=== PATIENT | female | born 1950 | race Caucasian/White ===

== ENCOUNTER → 2019-05-08 08:32 | Outpatient (CLI) | payer MEDICARE, SELFPAY ==
--- NOTE | 2019-05-08 | DI.MRI.S_ITS ---
PROCEDURE: MR HEAD/BRAIN WO/W CON INDICATIONS: RIGHT FACIAL DROOP TECHNIQUE: Noncontrast axial T1 spin echo, axial T2 fast spin echo, sagittal and axial FLAIR, coronal T2 fast spin echo, axial gradient echo, axial diffusion and ADC through the brain. After the administration of contrast, axial and coronal T1 spin echo with fat saturation through the brain. COMPARISON: None. FINDINGS: Image quality: Excellent. CSF spaces: Basal cisterns are patent. No extra-axial fluid collections. Ventricles are normal in size and shape. Brain: No midline shift. No intracranial bleeds or masses. No abnormal intracranial enhancement. There is cerebral volume loss for age. There is periventricular white matter chronic small vessel ischemic change. The brainstem appears normal. Diffusion-weighted images demonstrate no acute ischemic insults. No chronic ischemic insults. Normal intravascular flow voids are present. Skull and face: Calvarial marrow is normal in signal. Orbits appear normal. Sinuses: Sinuses and mastoids appear clear. IMPRESSION: No evidence of acute ischemia. No abnormal intracranial enhancement. Dictated by: Homero Hurley M.D. on 05/08/2019 at 10:39 Approved by: Homero Hurley M.D. on 05/08/2019 at 10:43
--- NOTE | 2019-05-08 | DI.US.S_ITS ---
PROCEDURE: US CAROTID DOPPLER BI INDICATIONS: RIGHT FACIAL DROOP TECHNIQUE: Color and pulse Doppler interrogation was performed of both carotid systems, with image documentation and velocity measurements. COMPARISON: None. FINDINGS: Stenosis calculations are based on SRU (Society of Radiologists in Ultrasound) criteria. Right side: Brachial blood pressure: 114/75 mm Hg. Common carotid artery peak systolic velocity: 100 cm/sec. Internal carotid artery peak systolic velocity: 104 cm/sec. Internal carotid artery end diastolic velocity: 46 cm/sec. External carotid artery peak systolic velocity: 99 cm/sec. ICA/CCA peak systolic ratio: 1.0. Bess scale imaging description: Minimal scattered plaque. Percent internal carotid artery stenosis: Less than 50%. Vertebral artery: Flow direction is antegrade. Left side: Brachial blood pressure: 118/75 mm Hg. Common carotid artery peak systolic velocity: 98 cm/sec. Internal carotid artery peak systolic velocity: 174 cm/sec. Internal carotid artery end diastolic velocity: 69 cm/sec. External carotid artery peak systolic velocity: 126 cm/sec. ICA/CCA peak systolic ratio: 1.8. Bess scale imaging description: Mild scattered plaque. Percent internal carotid artery stenosis: The 50-69% stenosis. Vertebral artery: Flow direction is antegrade. IMPRESSION: 1. 50-69% left internal carotid artery stenosis. 2. Less than 50% right internal carotid artery stenosis. Dictated by: Silviano Menard [facility] Interpreted: Mauro Aguirre MD on 05/08/2019 at 11:05 Approved by: Mauro Aguirre M.D. on 05/08/2019 at 12:14
== END ==
PROVIDERS: PCP Internal Medicine; Referring Provider Acupuncturist; Visit Provider Internal Medicine
DX: R29.810 Facial weakness (principal); I65.23 Occlusion and stenosis of bilateral carotid arteries
CPT/HCPCS: 70553; 93880

== ENCOUNTER 2019-08-08 15:19 | Emergency (ER) | payer MEDICARE, SELFPAY ==
[2019-08-08 15:30] VITALS: BP 124/64; PULSE 81; RESP 14; TEMP 37.2; O2SAT 100; BMI 23.4
--- NOTE | 2019-08-08 15:31 | DI.RAD.S_ITS ---
PROCEDURE: XR CHEST 1V INDICATIONS: chest pain TECHNIQUE: One view of the chest was acquired. COMPARISON: None. FINDINGS: Surgical changes and devices: None. Lungs and pleura: Lungs are clear. No pleural effusions or pneumothorax. Mediastinum: Mediastinal contours appear normal. Heart size is normal. Bones and chest wall: No suspicious bony lesions. Overlying soft tissues appear unremarkable. IMPRESSION: Negative chest. No acute cardiopulmonary process is evident. Dictated by: Mg Evangelista M.D. on 08/08/2019 at 15:08 Approved by: Mg Evangelista M.D. on 08/08/2019 at 15:09
[2019-08-08 15:47] LABS: Add Manual Diff / Slide Review NO; Basophils Absolute Auto 100 /uL (0-100); Basophils Percent Auto 1.3 % (0-2); Eosinophils Absolute Auto 100 /uL (0-450); Eosinophils Percent Auto 0.7 % (2-4); Hematocrit 39.4 % (36-46); Hemoglobin 13.9 g/dL (12.0-16.0); Lymphocytes Absolute Auto 2800 /uL (1100-4500); Lymphocytes Percent Auto 34.3 % (25-40); Mean Corpuscular HGB Conc 35.3 % (30-36); Mean Corpuscular Hemoglobin 32.2 PG (26-34); Mean Corpuscular Volume 91.3 fL (80-100); Monocytes Absolute Auto 600 /uL (0-900); Monocytes Percent Auto 7.3 % (3-14); Neutrophils Absolute Auto 4600 /uL (1500-7000); Neutrophils Percent Auto 56.4 % (50-75); Platelet Count 301 X10^3/uL (150-400); Red Blood Cell Count 4.32 X10^6/uL (4.0-5.2); Red Cell Distribution Width 13.3 % (11.6-14.8); White Blood Cell Count 8.2 X10^3/uL (4.5-11.0)
[2019-08-08 15:54] LABS: INR 0.9 (0.9-1.3); Prothrombin Time 9.8 SECONDS (10.1-12.7)
--- NOTE | 2019-08-08 15:56 | ED.CHESTPAIN ---
HPI - Chest Pain General Chief Complaint: Chest Pain Stated Complaint: CHEST PAIN Time Seen by Provider: 08/08/19 15:33 Source: patient Mode of arrival: Ambulatory Limitations: no limitations History of Present Illness HPI narrative: Patient is a 69-year-old female who presents with chest pains off and on for the last 10 years. She says it's been ongoing persistently today it comes and goes and lasts for about 10-15 seconds. She had with frequent episodes today she only got about a minute between each 1. She has had a couple I've talked to her no PVCs noted on the monitor. She denies any dizziness lightheadedness. Pain remains localized in left side of her chest. She said that she was seen by middle school sports coach at some point for the davis told to take a statin. She may have had TIA this past year but not sure. She did take aspirin 81 mg prior to arrival. She denies any shortness of breath no radiation of pain. She denies any provocation or palliation of chest discomfort. MD complaint: chest pain Duration: intermittent and now resolved Onset: during rest Pain location: left chest Severity: mild Quality: sharp Relieving factors: nothing Exacerbating factors: nothing Related Data Allergies Allergy/AdvReac Type Severity Reaction Status Date / Time tramadol [TRAMADOL] Allergy Severe VERTIGO & Verified 08/08/19 15:33 PASSES OUT misoprostol [From CYTOTEC] Allergy Intermediate RASH Verified 08/08/19 15:33 Opioids - Morphine Analogues AdvReac Severe NAUSEA/V Verified 08/08/19 15:33 [OPIOIDS - MORPHINE OMITING ANALOGUES] Review of Systems Review of Systems Narrative: GENERAL: Denies chills, fatigue, malaise, fever, sweats, travel HEENT: Denies sinus pain, ear pain, sore throat, difficulty swallowing, neck pain RESPIRATORY: Denies dyspnea, cough, wheezing, hemoptysis, sputum. CARDIOVASCULAR: See HPI GASTROINTESTINAL: Denies nausea, vomiting, abdominal pain, diarrhea, constipation, melena. : Denies dysuria, frequency, incontinence, hematuria, urinary retention, flank pain. MUSCULOSKELETAL: Denies weakness, joint pain, or bony pain SKIN: No rash, no erythema, no pruritus NEUROLOGIC: Denies weakness, dizziness, headache, numbness, change in speech, confusion PSYCHIATRIC: No concerning psychosocial issues. 12 point review of systems is negative except for those stated above and HPI Patient History Medical History Hyperlipidemia (Acute) TIA (transient ischemic attack) (Acute) Surgical History History of tonsillectomy Status post dilation and curettage (01/28/16) Status post laparoscopy Status post tubal ligation Social History Smoking Status: Unknown if ever smoked Smoking Status: Unknown if ever smoked alcohol intake frequency: holidays/special occasions only Substance Use Type: does not use Exam Initial Vital Signs Initial Vital Signs: Vital Signs Temperature 98.9 F 08/08/19 15:30 Pulse Rate 81 08/08/19 15:30 Respiratory Rate 14 08/08/19 15:30 Blood Pressure 124/64 08/08/19 15:30 Pulse Oximetry 100 08/08/19 15:30 GENERAL: Well-appearing, well-nourished and in no acute distress. HEENT: Head atraumatic,EOMI, pupils reactive CARDIOVASCULAR: Regular rate and rhythm without murmurs, rubs or gallops. RESPIRATORY: Breath sounds equal bilaterally, no wheezes rales or rhonchi. ABDOMEN: Soft, nontender. Normoactive bowel sounds all 4 quadrants. No guarding or rebound. EXTREMITIES: Normal range of motion, no clubbing or edema. Neurovascularly intact NEUROLOGICAL: Alert and oriented x4.Normal gait and speech. SKIN: Warm, dry, no laceration, no petechiae, no rashes or lesions. Course Orders Ordered: ED Orders 08/08/19 15:31 XR chest 1V Stat EKG-12 Lead Stat 08/08/19 15:38 Complete Blood Count AUTO DIFF Stat Comprehensive Metabolic Panel Stat Lipase Stat Partial Thromboplastin Time Stat Prothrombin Time INR Stat Troponin & CK Cardiac Panel Stat Vital Signs Vital signs: Vital Signs - 8 hr 08/08/19 15:30 08/08/19 16:28 08/08/19 17:39 Temperature 98.9 F Pulse Rate 81 82 81 Respiratory Rate 14 13 14 Blood Pressure 124/64 Blood Pressure [Right Arm] 98/68 100/66 Pulse Oximetry 100 98 97 MDM - Chest Pain Lab Data Attestation: I reviewed the patient's lab results. Result diagrams: 08/08/19 15:38 08/08/19 15:38 Labs: Lab Results 08/08/19 08/08/19 08/08/19 Range/Units 15:38 15:38 15:38 WBC 8.2 (4.5-11.0) X10^3/uL RBC 4.32 (4.0-5.2) X10^6/uL Hgb 13.9 (12.0-16.0) g/dL Hct 39.4 (36-46) % MCV 91.3 (80-100) fL MCH 32.2 (26-34) PG MCHC 35.3 (30-36) % RDW 13.3 (11.6-14.8) % Plt Count 301 (150-400) X10^3/uL Neut % (Auto) 56.4 (50-75) % Lymph % (Auto) 34.3 (25-40) % [place] % (Auto) 7.3 (3-14) % Eos % (Auto) 0.7 L (2-4) % Baso % (Auto) 1.3 (0-2) % Neut # (Auto) 4600 (9741-9375) /uL Lymph # (Auto) 2800 (1471-2585) /uL [place] # (Auto) 600 (0-900) /uL Eos # (Auto) 100 (0-450) /uL Baso # (Auto) 100 (0-100) /uL PT 9.8 L (10.1-12.7) SECONDS INR 0.9 (0.9-1.3) APTT 33 (26.4-36.2) SECONDS Sodium 140 (137-145) mmol/L Potassium 3.5 (3.4-5.1) mmol/L Chloride 105 (98-107) mmol/L Carbon Dioxide 27 (22-32) mmol/L BUN 21 H (7-17) mg/dL Creatinine 0.70 (0.52-1.04) mg/dL Estimated GFR > 60.0 (>60) mL/min BUN/Creatinine Ratio 30.0 H (6-22) Glucose 107 (80-110) mg/dL Calcium 9.5 (8.4-10.2) mg/dL Total Bilirubin 0.7 (0.2-1.3) mg/dL AST 33 (14-36) IU/L ALT 28 (<35) IU/L Alkaline Phosphatase 60 (38-126) U/L Total Creatine Kinase 60 (30-135) U/L CK-MB (CK-2) TNP CK-MB (CK-2) Rel Index TNP Troponin I < 0.012 (0.01-0.034) ng/mL Total Protein 7.2 (6.3-8.2) g/dL Albumin 4.5 (3.5-5.0) g/dL Globulin 2.7 (1.7-4.1) g/dL Albumin/Globulin Ratio 1.7 (1.0-2.8) Lipase 96 (23-300) U/L Imaging Data Chest x-ray: Radiologist's impression: PROCEDURE: XR CHEST 1V INDICATIONS: chest pain TECHNIQUE: One view of the chest was acquired. COMPARISON: None. FINDINGS: Surgical changes and devices: None. Lungs and pleura: Lungs are clear. No pleural effusions or pneumothorax. Mediastinum: Mediastinal contours appear normal. Heart size is normal. Bones and chest wall: No suspicious bony lesions. Overlying soft tissues appear unremarkable. IMPRESSION: Negative chest. No acute cardiopulmonary process is evident. Dictated by: Mg Evangelista M.D. on 08/08/2019 at 15:08 ECG Data Attestation: I personally reviewed and interpreted this ECG as follows: Prior ECG tracings: not available for review Interpretation: Normal sinus rhythm rate 81, no ST elevation depression or T-wave inversion MDM Narrative Medical decision making narrative: Patient was offered Toradol Protonix and other things for pain. At this time she declined all things for pain. Patient did not have any PVCs noted on the monitor she has had intermittent chest pain throughout the day troponin is negative. She has no signs of shortness of breath. I recommend outpatient follow-up and further workup as needed. Discharge Plan Departure Patient Disposition: Home Clinical Impression: Atypical chest pain Discharge Date/Time: 08/08/19 17:43 Instructions: DI for Atypical Chest Pain Activity Restrictions/Additional Instructions: *You have been diagnosed with atypical chest pain *What to do: You will likely require further testing with your heart doctor or your primary care doctor. Please discuss with them stress test and/or echocardiogram along with possibly a Holter monitor. *Continue to take medications as directed Aspirin 81 mg daily to help prevent heart attack and stroke *Follow up with your primary care provider in 2-3 days *Return to ER if you should have increasing chest pain heart palpitations shortness of breath or any new, worsening or concerning symptoms Referrals: Cesario Oconnell MD [Primary Care Provider] -
[2019-08-08 15:57] LABS: PTT Partial Thromboplastin Tim 33 SECONDS (26.4-36.2)
[2019-08-08 15:59] LABS: Alanine Aminotransferase 28 IU/L (<35); Albumin 4.5 g/dL (3.5-5.0); Albumin Globulin Ratio 1.7 (1.0-2.8); Alkaline Phosphatase 60 U/L (38-126); Aspartate Aminotransferase 33 IU/L (14-36); Bilirubin Total 0.7 mg/dL (0.2-1.3); Blood Urea Nitrogen 21 mg/dL (7-17); Calcium 9.5 mg/dL (8.4-10.2); Carbon Dioxide 27 mmol/L (22-32); Chloride 105 mmol/L (98-107); Creatine Kinase 60 U/L (30-135); Estimated Glomerular Filt Rate > 60.0 mL/min (>60); Globulin 2.7 g/dL (1.7-4.1); Glucose 107 mg/dL (80-110); HEMOLYSIS 26 (0-50); Lipase 96 U/L (23-300); Potassium 3.5 mmol/L (3.4-5.1); Sodium 140 mmol/L (137-145); Total Protein 7.2 g/dL (6.3-8.2)
[2019-08-08 16:11] LABS: Troponin I < 0.012 ng/mL (0.01-0.034)
[2019-08-08 16:28] VITALS: BP 98/68; PULSE 82; RESP 13; O2SAT 98
[2019-08-08 17:39] VITALS: BP 100/66; PULSE 81; RESP 14; O2SAT 97
== END 2019-08-08 17:43 | disposition home or self-care (01) ==
PROVIDERS: Emergency Provider Emergency Medicine; PCP Internal Medicine
DX: R07.89 Other chest pain (principal); E78.5 Hyperlipidemia, unspecified
CPT/HCPCS: 36415; 71045; 80053; 82550; 83690; 84484; 85025; 85610; 85730; 93005; 93010; 99284; 99285

== ENCOUNTER → 2020-04-06 10:31 | Outpatient (CLI) | payer MEDICARE, SELFPAY ==
--- NOTE | 2020-04-06 10:38 | DI.CT.S_ITS ---
PROCEDURE: CT ABDOMEN PELVIS WO CON INDICATIONS: surgical planning TECHNIQUE: Noncontrast 5 mm thick sections acquired from the diaphragms to the symphysis. 5 mm coronal and sagittal reformats were then performed. For radiation dose reduction, the following was used: automated exposure control, adjustment of mA and/or kV according to patient size. COMPARISON: None. FINDINGS: Image quality: Excellent. ABDOMEN: Lung bases: Lung bases are clear. Heart size is normal. Solid organs: Liver is enlarged with steatosis. Gallbladder is contracted but grossly unremarkable.. Pancreas is normal in contours. Spleen is normal in size. No adrenal nodules. Kidneys are normal in size, without hydronephrosis or nephrolithiasis. Peritoneum and bowel: Unenhanced bowel loops demonstrate normal wall thickness and caliber. No free fluid or air. Colonic diverticula are present without associated inflammatory change. Nodes and vessels: No retroperitoneal or mesenteric adenopathy by size criteria. Aorta and inferior vena cava are normal in caliber. Miscellaneous: No ventral hernias. Mild hiatal hernia. PELVIS: Genitourinary: Bladder wall thickness is normal. Foci of low attenuation as well soft tissue prominence are noted within the lower uterine segment. Miscellaneous: Fat containing inguinal hernias are noted.. Bones: No suspicious bony lesions. No vertebral body compression fractures. IMPRESSION: 1. Bilateral fat containing inguinal hernias. 2. Low-attenuation foci within the lower uterine segment possibly small cysts. As indicated, ultrasound may be obtained. Dictated by: Marija Atkinson M.D. on 04/06/2020 at 13:57 Approved by: Marija Atkinson M.D. on 04/06/2020 at 14:21
== END ==
PROVIDERS: PCP Physician Assistant; Referring Provider Surgery; Visit Provider Surgery
DX: K40.20 Bilateral inguinal hernia, without obstruction or gangrene, not specified as recurrent (principal); R10.12 Left upper quadrant pain; R09.89 Other specified symptoms and signs involving the circulatory and respiratory systems; K76.0 Fatty (change of) liver, not elsewhere classified; K44.9 Diaphragmatic hernia without obstruction or gangrene; K57.90 Diverticulosis of intestine, part unspecified, without perforation or abscess without bleeding
CPT/HCPCS: 74176

== ENCOUNTER → 2020-07-12 08:47 | Outpatient (CLI) | payer MEDICARE, SELFPAY ==
[2020-07-12 11:35] LABS: COVID19 -Nasal RAPID Negative (Negative)
== END ==
PROVIDERS: PCP Physician Assistant; Visit Provider Physician Assistant
DX: Z11.59 Encounter for screening for other viral diseases (principal)
CPT/HCPCS: 87635

== ENCOUNTER 2020-07-14 07:52 | Observation (INO) | payer MEDICARE, SELFPAY ==
[2020-07-09 13:41] VITALS: BMI 23.6
[2020-07-14] VITALS (16 sets, daily range): BP systolic 83–123; BP diastolic 47–70; PULSE 77–106; RESP 10–18; TEMP 35.7–37.1; O2SAT 88–99; BMI 23.9
--- NOTE | 2020-07-14 | PATH_ITS ---
[facility] Accession Number: [id number] . 01 Material submitted: . PART A: duodenum - DUODENUM PART B: stomach - GASTRIC ANTRUM PART C: stomach - STOMACH POLYP PART D: esophagus - ESOPHAGUS . 02 Diagnosis: A. Duodenum, Biopsy: Duodenal mucosa with no diagnostic abnormality. Negative for active inflammation, features of sprue, dysplasia, or malignancy. . B. Stomach Antrum, Biopsy: Gastric antral mucosa with minimal active inflammation. Negative for Helicobacter organisms by immunohistochemistry. Negative for intestinal metaplasia. Negative for dysplasia or malignancy. . C. Stomach Polyp, Biopsy: Fundic gland polyp. No evidence of Helicobacter organisms on H/E stain. Negative for intestinal metaplasia. Negative for dysplasia and malignancy. . D. Esophagus, Biopsy: Squamous epithelium with no diagnostic abnormality. Intraepithelial eosinophils are not increased. Negative for dysplasia and malignancy. [facility] 07/19/2020 1526 Local . 02 Electronically signed: . Sukhwinder Juarez MD, PhD, Pathologist NPI- [id number] . 01 Gross description: . Part A: DUODENUM: Received in formalin are 2 fragment(s) of riley, soft tissue measuring 0.3 x 0.3 x 0.1 cm to 0.2 x 0.2 x 0.1 cm submitted entirely in 1 cassette(s) Part B: GASTRIC ANTRUM: Received in formalin is 1 fragment(s) of riley, soft tissue measuring 0.7 x 0.2 x 0.1 cm submitted entirely in 1 cassette(s) Part C: STOMACH POLYP: Received in formalin are 2 fragment(s) of riley, soft tissue measuring 0.3 x 0.3 x 0.3 cm to 0.3 x 0.3 x 0.3 cm submitted entirely in 1 cassette(s) Part D: ESOPHAGUS: Received in formalin are 2 fragment(s) of riley, soft tissue measuring 0.3 x 0.2 x 0.1 cm to 0.2 x 0.2 x 0.2 cm submitted entirely in 1 cassette(s) /[facility] 07/15/2020 0712 Local . 02 Microscopic: . B. An immunohistochemical stain was performed to evaluate for Helicobacter organisms and is negative. The control stain showed appropriate reactivity. . * This test was developed and its performance characteristics determined by [facility]. It has not been cleared or approved by the U.S. Food and Drug Administration. The FDA has determined that such clearance or approval is not necessary. This test is used for clinical purposes. It should not be regarded as investigational or for research. . 02 Pathologist provided ICD-10: K29.70, K31.7, R10.13 . 02 CPT . 113533, 987199, 530602, 333572 Performed at: 01 [facility] [address] [facility], [place], [place] [id number] MD Toñito Day MD Phone: [phone] Performed at: [facility] [address] [place], [place] [id number] MD Heather Ugalde MD Phone: [phone]
--- NOTE | 2020-07-14 08:20 | P.HP_ITS ---
History of Present Illness History of Present Illness Date Patient Seen: 07/14/20 Time Patient Seen: 08:21 Chief complaint: SDC Narrative: This patient is here for bilateral inguinal hernia repair with mesh and EGD. To review, this is a 70-year-old woman with complex medical history including steroid dependent Milwaukee's disease, borderline diabetes, chronic fatigue, hypothyroid, TIA, small vessel disease, hiatal hernia, GERD, bilateral inguinal hernias. She came to see me a few months ago because the inguinal hernias were bothering her more, and the right one especially causing her pain and discomfort. She has been concerned that they are at risk for strangulation. She has had some chronic constipation, and what sounds like what might be a rectoceole. She says she has to push up on her perineal area to have a BM. She says this has improved with improving her diet recently. She denies ongoing problems with this at this time. She has described a complexity of upper GI symptoms including LUQ discomfort that she relieves by pushing down on her left rectus muscle near the costal margin. She denies having had an upper endoscopy or colonoscopy. She says she has not had a colonoscopy because she does not want to have one. She was complaining of discomfort in her chest and throat at times. She occasionally has a globus sensation with eating (about once per week). She denies heartburn, waterbrash, or respiratory complaints. She had a CT scan, which shows bilateral inguinal hernias, right greater than left, and a very minor hiatal hernia. Since her last visit, she went to see her primary care provider to discuss the risks and benefits of EGD and laparoscopic inguinal hernia repair surgery. Her primary care provider recommended that she increase her dose of hydrocortisone on the day of surgery to double her morning dose. She otherwise release the patient for general anesthesia and laparoscopic surgery as well as an EGD. The patient denies any new symptoms since her last visit, but has noticed at the right inguinal hernias bothering her more, and the left 1 is causing her increasingly more discomfort. Interval events: per the patient no changes since her last visit 06/08/2020. ROS: Thirteen system review is otherwise negative other than as mentioned below and in HPI. PE: GENERAL: Well groomed and cooperative. Appears stated age. Answers questions promptly and appropriately. Vital signs noted. HENT: Normocephalic, atraumatic. Hearing intact. EYES: Conjunctiva pink, sclera white, no periorbital swelling. CARDIOVASCULAR: Regular rate. No pedal edema. RESPIRATORY: Non-tachypneic, breathing comfortably on room air. GASTROINTESTINAL: Abdomen soft and non-distended GENITALURINARY: No flank tenderness. Bilateral inguinal tenderness; inguinal floor laxity, no obvious hernia bulge or defect palpable MUSCULOSKELETAL: Equal tone and mass bilaterally. SKIN: Warm, dry, soft, appropriate color for ethnicity. No other lesions, rashes, or wounds. NEURO: Alert and Oriented X 3. No gross sensory deficits, or cognitive issues. PSYCH: Appropriate affect and mood. Patient History Medical History Shan's disease Adrenal insufficiency Anxiety Borderline diabetes Chest pain Chronic cough Chronic fatigue Depression Difficulty swallowing Edema GERD (gastroesophageal reflux disease) Hx of migraine headaches Hyperglycemia Hyperlipidemia Hypothyroid Small vessel disease TIA (transient ischemic attack) Urinary incontinence Surgical History History of tonsillectomy Status post dilation and curettage (01/28/16) Status post laparoscopy Status post tubal ligation Family & Social History Family History Father Heart disease Mother Gallstones Grandfather Gallstones Social History: household members spouse Tobacco & Substance use: Smoking Status Unknown if ever smoked alcohol intake never alcohol intake frequency holiday/special occasion Substance Use Type does not use Meds Home Medications and Allergies Home Medications Medication Instructions Recorded Confirmed Type estradiol 0.075 mg/24 hr 1 patch TRANSDERMAL .weekly each 03/16/20 07/14/20 History semiweekly transdermal patch multivitamin 1 cap PO DAILY 03/16/20 07/14/20 History omega-3 fatty acids 1,000 mg 1,000 mg PO DAILY 03/16/20 07/14/20 History capsule progesterone micronized 100 mg 100 mg PO QAM 03/16/20 07/12/20 History capsule red yeast rice 600 mg capsule 600 mg PO DAILY 03/16/20 07/14/20 History testosterone 50 mg/5 gram (1 %) 1 packet TRANSDERMAL DAILY 03/16/20 07/14/20 History transdermal gel thyroid (pork) 30 mg tablet 30 mg PO BID tab 03/16/20 07/14/20 History hydrocortisone 10 mg PO SEEINSTR 07/14/20 07/14/20 History Allergies Allergy/AdvReac Type Severity Reaction Status Date / Time Opioids - Morphine Analogues Allergy Severe Anaphylaxis, Verified 07/14/20 08:22 [OPIOIDS - MORPHINE Rash, ANALOGUES] Itching throat, syncope, vomiting tramadol [TRAMADOL] Allergy Severe VERTIGO & Verified 07/14/20 08:22 PASSES OUT misoprostol [From CYTOTEC] Allergy Intermediate RASH Verified 07/14/20 08:22 hydrocodone Allergy Verified 07/14/20 08:22 meperidine [From Demerol] Allergy Verified 07/14/20 08:22 oxycodone [From Percocet] Allergy Verified 07/14/20 08:22 Assessment & Plan Assessment and plan (1) Chronic constipation: Status: Acute (2) Bilateral inguinal hernia: Status: Acute (3) LUQ abdominal pain: Status: Acute (4) Milwaukee's disease: Status: Acute (5) TIA (transient ischemic attack): Status: Acute (6) Hyperlipidemia: Status: Acute (7) Borderline diabetes: Status: Acute (8) Chronic fatigue: Status: Acute (9) Small vessel disease: Status: Acute (10) Globus sensation: Status: Acute Assessment & Plan narrative: Risks and benefits of laparoscopic possible open bilateral inguinal hernia repair with mesh were discussed with the patient. Risks and benefits of EGD were discussed. Risks of bleeding, perforation, damage to nearby structures, need for additional procedures need for prolonged hospital stay, scarring, postoperative pain, Addisonian crisis, bowel obstru ction were discussed. The patient desires to proceed with EGD and inguinal hernia repair procedures. COVID-19 COVID-19 status: Negative Result date/Date tested (Pos, Neg/Pending): 07/12/20 Time Spent With Patient Time with patient: 15-24 minutes
[2020-07-14] MEDS: LACTATED RINGERS 1,000 ML 42 ML IV ×2 (08:22→10:44)
[2020-07-14] MEDS: CEFAZOLIN 2 GM/100 ML FROZ.PIGGY IV (08:45)
[2020-07-14] MEDS: BUPIVACAINE 0.25% W/ EPI (PF) 10 ML VIAL 20 ML INJ (09:16)
--- NOTE | 2020-07-14 09:33 | SUR.OPER ---
Supine on padded OR bed, head on pillow, ARMS TUCKED BILATERALLY legs uncrossed, safety belt at thigh, tape over blanket over lower legs.
[2020-07-14] MEDS: BUPIVACAINE LIPOSOME 266 MG/20 ML VIAL INJ (09:57)
[2020-07-14] MEDS: ACETAMINOPHEN IV 1,000 MG/100 ML VIAL 400 MG IV (10:00)
--- NOTE | 2020-07-14 11:13 | PM.OP.1 ---
Operative Date/Time/Diagnoses Date of procedure: 07/14/20 Time of procedure: 11:13 Pre-op diagnosis: Bilateral inguinal hernias Post-op diagnosis: other (Bilateral inguinal hernias right > left; left upper quadrant adhesions) Procedure & Clinicians Procedure: Laparoscopic repair of bilateral inguinal hernias with mesh Laparoscopic lysis of adhesions Same procedure as scheduled: Yes Surgeon: Angela Barajas Operative Notes Findings: Deep indirect right inguinal hernia; small indirect left inguinal hernia; dense left upper quadrant adhesions to the anterior abdominal wall Specimen(s): none sent Prosthetic devices, grafts, tissues, transplants, or devices: BARD 3-D max, medium sized lightweight mesh Estimated Blood Loss (mL): 5 Procedure in detail: The patient was brought into the operating room and placed supine on the OR table. Sequential compression devices were placed on both legs and turned on. Appropriate perioperative antibiotics were given prior to the start of surgery. General anesthesia was induced the patient was intubated. A Rodriguez catheter was placed sterilely in the bladder. The abdomen was prepped and draped in sterile fashion. Surgical time-out was conducted. Local anesthetic was injected under the skin just superior to the umbilicus and a 5 mm vertical incision was made at this site. The umbilical stalk was grasped with a Temo and elevated. A Veress needle was passed through the fascia into proper position. The position was tested with a saline drop test which was appropriate for intra-abdominal Veress needle placement. The abdomen was then insufflated in the usual fashion. Once insufflated to 15 mm Hg the Veress needle was removed and a 5 mm optical trocar was placed under direct vision using a 5 mm 30 degree scope. Once the camera was inside the abdomen I took a look around. There was no injury from port placement. Two additional ports were placed in a similar fashion in the right and left mid clavicular line at the level of the umbilicus, one handbreadth lateral to the umbilicus. The umbilical port was upsized to a 10mm port. Attention was turned to the pelvis, and both inguinal regions were evaluated. On the left side there was an indentation in the abdominal wall consistent with a small indirect hernia defect. On the right side there was a deep indirect hernia defect with incarcerated fat. Beginning on the [right] side local anesthetic was in the infiltrated into the abdominal wall using 0.25% Marcaine with epi, in the region of the expected peritoneal incision. Metzenbaum scissors attached to cautery were then used to incise the peritoneum transversely from the midline laterally to the ASIS, 10 cm superior to the inguinal hernia defect. The peritoneal flap was developed down to the inguinal canal. There was a deep hernia sac, and tedious dissection was required in order to free it from the surface of the femoral vein. Once the flap had been fully developed associated structures were completely exposed, and the hernia defect had been fully evaluated, I then exposed the pubic tubercle and push down the bladder so that there was space for good mesh placement. A need 3DMax macro porous mesh was then brought into the field. I placed it through the 10 mm port and positioned it within the surgical defect covering the direct, indirect, and femoral space with 5 cm overlap in each direction. I then secured the mesh to the pubic tubercle in 2 locations using the AbsorbaTack device. I then secured the mesh to the abdominal wall at its superior edge, far away from the triangle of doom and the triangle of pain using the secure strap device, avoiding the epigastric vessels as well. Once the mesh was secured in place I brought up the peritoneal flap. There was no clam shelling or bending of the mesh when the peritoneal flap was brought up. I then secured the peritoneum up to the abdominal wall using the secure strap tacker, with dissolvable tacks. There was no gapping of the peritoneal flap or exposed mesh. Attention was then turned to the [left] side. Local anesthetic was in the infiltrated into the abdominal wall using 0.25% Marcaine with epi, in the region of the expected peritoneal incision. Metzenbaum scissors attached to cautery were then used to incise the peritoneum transversely from the midline laterally to the ASIS, 10 cm superior to the inguinal hernia defect. The peritoneal flap was developed down to the inguinal hernia defect. When I reached the defect I found a small indirect hernia defect. Once the flap had been fully developed and the associated structures were completely exposed, and the hernia defect had been fully evaluated, I then exposed the pubic tubercle and pushed down the bladder so that there was space for good mesh placement. A medium 3DMax macro porous mesh was then brought into the field. I placed it through the 10 mm port and positioned it within the surgical defect covering the direct, indirect, and femoral space with 5 cm overlap in each direction. The pocket was exactly sized and shaped for the mesh, and there was no room for it to move. I then brought up the peritoneal flap. There was no clam shelling or bending of the mesh when the peritoneal flap was brought up. I then secured the peritoneum up to the abdominal wall and the mesh using the secure strap surgical tacker, with dissolvable tacks. There was no gapping of the peritoneal flap or exposed mesh. At this point the mesh was well positioned, secured, and well covered. There was no exposed mesh, no bleeding, and the peritoneal flaps were in good position. I then infiltrated the abdominal wall in the area of dissection with an additional 20 mL of Exparel, combined with the remaining local anesthetic for total of [55 mL] of 0.25% Marcaine for the case. I noted some dense adhesions in the left upper quadrant of the abdomen. Knowing that the patient has an area of discomfort and unexplained pain in the left upper abdomen, I went ahead and took down these adhesions as they are likely source or contributor to the patient's left upper quadrant pain. The he is were from the omentum to the abdominal wall. There were taken down easily using endoscopic matty with cautery attached. At this point the umbilical port site was closed with 0 Vicryl suture in the fascia using a Chris-Tolu suture Passer. Insufflation was then removed from the abdomen, and the umbilical port site was closed with 3-0 Vicryl in the subcutaneous layers, and 4 Monocryl in the skin. The other 2 port sites were closed with 4 Monocryl in the skin. Each port site was sealed with Dermabond. Local anesthetic was given at each of the port sites and in the fascia. This concluded this portion of the procedure. At this point the needle sponge and instrument counts were correct. The patient was in stable condition instill under general anesthesia. At this point attention was turned to the upper endoscopy portion of the procedure. See the endoscopy note for dictation of the remainder of the procedure. Complications: none Post-operative Condition: stable Disposition: PACU
--- NOTE | 2020-07-14 11:20 | P.OP.ENDO_ITS ---
Operative Date/Time/Diagnoses Date of procedure: 07/14/20 Time of procedure: :20 Pre-op diagnosis: Left upper quadrant pain Post-op diagnosis: other (Mild gastritis, gastric polyps, Hill grade 2-3 hiatal hernia) Procedure & Clinicians Study performed: Esophagogastroduodenoscopy Biopsies of duodenum, stomach, distal esophagus with cold forceps Removal of gastric polyp x2 with hot snare Same procedure as scheduled: Yes Indications: Left upper quadrant pain Surgeon: Angela Barajas Procedure Notes SCOAP/Timeout: Performed Procedure in detail: Following the patient's inguinal hernia repair, she was still under general anesthesia, and a bite block was positioned in the patient's mouth to protect the lips, teeth, and tongue for the procedure. Surgical time- out was performed prior to the inguinal hernia repair which immediately proceeded this procedure. The lubricated gastroscope was passed through the bite block and across the tongue and into the esophagus without incident. A tubular view of the esophagus was maintained as the scope was advanced through the esophagus and into the stomach. The scope was advanced through the stomach and to the pylorus. The scope was gently popped through the pylorus and into the duodenal bulb. The scope was flexed and advanced into the second and third portions of the duodenum. The duodenum and duodenal bulb appeared essentially normal. The scope was withdrawn into the stomach. There was evidence of mild endoscopic gastritis, and multiple benign-appearing polyps throughout the stomach. There was a slightly heaped up area of the gastric antrum. Biopsies were taken of this site. Two gastric polyps were removed with hot snare. All the biopsy specimens and polyps were sent for pathology. The scope was retroflexed and the gastric cardia was examined. In the hiatus a Hill grade 2-3 hiatal hernia was seen without any signs of erosion or esophagitis. The scope was then straightened, and withdrawn into the esophagus. The Z-line appeared normal. The distal esophagus appeared normal. Biopsies were taken at this site. The scope was then withdrawn through the esophagus with a tubular view. The scope was then withdrawn from the patient the procedure was concluded. The patient tolerated the procedure well. She was awakened from anesthesia and extubated by Dr. Perez. She was then transferred to the PACU in stable condition. Findings: gastritis (Mild endoscopic gastritis) and polyp (Gastric polyps) Specimen(s): other (Biopsies of duodenum, stomach, esophagus, and gastric polyps) Complications: none Impression: I do not think that any of the findings on the EGD explained the patient's left upper quadrant pain. I had the gastric polyps are likely benign, but we will see with the pathology result is. I think a gastritis is quite minimal, but again we will see with the pathology results a. Post-procedure Recommendations: Other recommendation (Will contact the patient with biopsy results, and see her in the office for follow-up) Follow up: as needed Disposition: PACU
--- NOTE | 2020-07-14 12:08 | SUR.PHASEI ---
report to Ivana for lunch relief
[2020-07-14] MEDS: ONDANSETRON 4 MG/2 ML INJ IV (14:08)
--- NOTE | 2020-07-14 14:16 | SUR.PHASEII ---
Addendum entered by Ivana Peoples R.N. 07/14/20 14:59: Patient taken to room 207 with all belongings and . Left in stable condition with receiving RN at bedside. Original Note: Patient's vitals have been very stable, but patient remains very sleepy and somnolent. at bedside. Patient responds appropriately, but states she cannot wake up. Dr. Barajas and Dr. Perez both updated on continued somnolence in phase 2. Dr. Barajas states she will write orders to transfer patient to acute care. Patient and aware.
[2020-07-14] MEDS: HYDROCORTISONE 10 MG TABLET 5 MG PO (17:03)
[2020-07-14 17:07] LABS: Phosphorous 2.7 mg/dL (2.8-4.1)
[2020-07-14 17:08] LABS: BUN Creatinine Ratio 35.4 (6-22); Blood Urea Nitrogen 17 mg/dL (7-17); Calcium 8.5 mg/dL (8.4-10.2); Carbon Dioxide 25 mmol/L (22-32); Chloride 103 mmol/L (98-107); Estimated Glomerular Filt Rate > 60.0 mL/min (>60); Glucose 148 mg/dL (80-110); HEMOLYSIS < 15 (0-50); Magnesium 1.9 mg/dL (1.6-2.3); Potassium 3.8 mmol/L (3.4-5.1); Sodium 135 mmol/L (137-145)
[2020-07-14 17:39] LABS: Cortisol Random 8.49 ug/dL
--- NOTE | 2020-07-14 20:40 | PC.NURSE ---
A&Ox3. 97%RA. ambulated to the BR several times. SBA-FWW. pt tolerated full liquid diet. no n/v. BTX4 hypo and burping. incision cdi sealed with dermabond, CROW. pt refused SCDs. pt reports she was unable to sleep due to the bed moving. switched her old bed to the newer bed model, pt able to sleep after. call light in reach. bed alarm active.
[2020-07-14] MEDS: THYROID, PORK 30 MG TABLET PO (21:07)
[2020-07-14] MEDS: HYDROCORTISONE 100 MG/2 ML VIAL 50 MG IV (21:07)
[2020-07-14] MEDS: DOCUSATE 100 MG CAPSULE PO (21:07)
[2020-07-14] MEDS: SODIUM CHLORIDE 0.9% FLUSH 10 ML IV (21:07)
[2020-07-15] VITALS: BP 102/64; PULSE 98; RESP 16; TEMP 37.4; O2SAT 94
[2020-07-15] MEDS: HYDROCORTISONE 100 MG/2 ML VIAL 50 MG IV (05:44)
[2020-07-15 08:06] VITALS: BP 126/76; PULSE 86; RESP 16; TEMP 36.4; O2SAT 97
[2020-07-15 08:32] LABS: BUN Creatinine Ratio 25.9 (6-22); Blood Urea Nitrogen 15 mg/dL (7-17); Calcium 8.9 mg/dL (8.4-10.2); Carbon Dioxide 24 mmol/L (22-32); Chloride 109 mmol/L (98-107); Estimated Glomerular Filt Rate > 60.0 mL/min (>60); Glucose 120 mg/dL (80-110); HEMOLYSIS < 15 (0-50); Magnesium 2.4 mg/dL (1.6-2.3); Potassium 4.1 mmol/L (3.4-5.1); Sodium 138 mmol/L (137-145)
[2020-07-15] MEDS: SODIUM CHLORIDE 0.9% FLUSH 10 ML IV (09:07)
[2020-07-15] MEDS: IBUPROFEN 400 MG TABLET PO (09:07)
[2020-07-15] MEDS: FISH OIL 1,000 MG CAPSULE 1000 MG PO (09:16)
[2020-07-15] MEDS: MULTIVITAMIN 1 TABLET 1 TAB PO (09:16)
[2020-07-15] MEDS: PROGESTERONE, MICRONIZED 100 MG CAPSULE PO (09:17)
[2020-07-15] MEDS: HYDROCORTISONE 10 MG TABLET PO (09:17)
--- NOTE | 2020-07-15 10:18 | PM.PN.1 ---
Subjective Subjective Date Patient Seen: 07/15/20 Time Patient Seen: 10:18 Interval history: Patient is doing much better this morning. She feels more oriented, and approaching her baseline. Pain is reasonably well controlled. She denies nausea. Exam Vital Signs (past 8 hours): - 07/15/20 08:06 Temperature 97.6 F Pulse Rate 86 Respiratory Rate 16 Blood Pressure 126/76 Pulse Oximetry 97 Oxygen Delivery Method Room Air Oxygen Flow Rate 0 Narrative Exam Narrative: GENERAL: Alert, comfortable. Appears stated age. Answers questions promptly and appropriately. Vital signs noted. HENT: Normocephalic, atraumatic. Hearing intact. EYES: Conjunctiva pink, sclera white, no periorbital swelling. CARDIOVASCULAR: Regular rate. No pedal edema. RESPIRATORY: Non-tachypneic, breathing comfortably on room air. GASTROINTESTINAL: Abdomen soft, mildly distended, incisions clean dry and intact, appropriate tenderness or postop day 1 GENITALURINARY: No flank tenderness. MUSCULOSKELETAL: Equal tone and mass bilaterally. SKIN: Warm, dry, soft, appropriate color for ethnicity. No other lesions, rashes, or wounds. NEURO: Alert and Oriented X 3. No gross sensory deficits, or cognitive issues. PSYCH: Appropriate affect and mood. Objective Labs Result Diagrams: 07/15/20 07:55 07/15/20 07:55 Labs: Laboratory Results - last 24 hr 07/14/20 07/14/20 07/15/20 16:41 16:41 07:55 Sodium 135 L 138 Potassium 3.8 4.1 Chloride 103 109 H Carbon Dioxide 25 24 BUN 17 15 Creatinine 0.48 L 0.58 Estimated GFR > 60.0 > 60.0 BUN/Creatinine Ratio 35.4 H 25.9 H Glucose 148 H 120 H Calcium 8.5 8.9 Phosphorus 2.7 L Magnesium 1.9 2.4 H Random Cortisol 8.49 Assessment & Plan Assessment and plan (1) Clallam's disease: Status: Acute (2) Small vessel disease: Status: Acute (3) Status post inguinal hernia repair: Status: Acute (4) Delayed emergence from general anesthesia: Status: Acute Assessment & Plan narrative: This 70-year-old woman with history of steroid dependent Clallam's disease, who had a laparoscopic repair of bilateral inguinal hernias, and an EGD yesterday under general anesthesia. In the postop area, she was very lethargic, and had difficulty waking. By evening, she was still quite lethargic, it was not appropriate for discharge home. She is not able to ambulate on her own, or safe for transport in a car with her . I recommended that they stay overnight, and we gave stress dose steroids due to her history of Clallam's disease, and the potential for addisonian crisis in the immediate postop. She remained stable overnight, and appears to improved quite significantly this morning. Think she is appropriate for discharge at this time with the appropriate precautions. I had a discussion with the patient and her regarding return precautions for any change in mental status, nausea, vomiting, uncontrolled pain, or other concerning symptoms. Plan: Discharge home with follow-up in the office in the next 1-2 weeks The patient is to return to the ER, or call EMS if any change in consciousness or mental status occurs, as well as any symptoms such as chest pain, shortness of breath, lightheadedness, or other concerning symptoms COVID-19 COVID-19 status: Negative Result date/Date tested (Pos, Neg/Pending): 07/12/20 Time Spent With Patient Time with patient: 25 - 35 minutes Quality VTE Deep Vein Thrombosis/Pulmonary Embolism Present on Admission: No
--- NOTE | 2020-07-15 10:56 | PC.NURSE ---
Addendum entered by Colleen Tyler R.N. 07/15/20 11:56: Pt left unit in no distress at 1104 via wheelchair with [employer] escort. Pt's present to drive pt home. Original Note: Day Shift- Discharge summary packet reviewed with pt and her Levi. Pt requested that I give information more directly to Levi at this time. Pt states is ready for discharge, feels tired, wants to rest. States has all personal belongings upon discharge. Rates bilateral incisional pain 3/10, prn Ibuprofen given at 0905 with good effect. Reviewed but not limited to S/S of infection, incision care, pain management, avoiding constipation, pt to call office to make follow up appointment per her request. No other voiced concerns.
--- NOTE | 2020-07-15 13:06 | CM.IDA ---
Initial DCP Assessment Note/ DC Note Brief visit w/this 70 yo female, resident of [place], POD#1 from hernia repair PMH includes [place]'s disease. Patient spent the night last night on the acute care floor d/t her difficulty waking after surgery/anesthesia. PCP: Magaly Mchugh Payer: [employer] Met w/patient and spouse Levi. Patient states she had a concern about staying the night (re: insurance coverage) but states Dr Barajas assisted by helping her understand the part the provider's medical documentation has in this process. Confirmed that patient is in observation status, discussed [employer] coverage , Part B, and suggested further Qs go through insurance Co and [facility] patient billing dept. Patient/spouse appreciative and deny further needs P: DC home w/spouse, close outpatient f/u LINDA Morse
== END 2020-07-15 11:04 | disposition home or self-care (01) ==
LOC: OR 11:20 → AC 07-15 10:35
PROVIDERS: Admitting Provider Surgery; PCP Physician Assistant; Referring Provider Physician Assistant; Visit Provider Surgery
PROC: 0YQ64ZZ Repair Left Inguinal Region, Percutaneous Endoscopic Approach (ICD-10-PCS; CPT 49650; principal; 2020-07-14 08:45)
PROC: 0DJ08ZZ Inspection of Upper Intestinal Tract, Via Natural or Artificial Opening Endoscopic (ICD-10-PCS; CPT 43235; 2020-07-14 08:45)
DX: K40.20 Bilateral inguinal hernia, without obstruction or gangrene, not specified as recurrent (principal); K59.09 Other constipation; E27.1 Primary adrenocortical insufficiency; E78.5 Hyperlipidemia, unspecified; R73.03 Prediabetes; R53.82 Chronic fatigue, unspecified; R09.89 Other specified symptoms and signs involving the circulatory and respiratory systems; Z86.73 Personal history of transient ischemic attack (TIA), and cerebral infarction without residual deficits; T88.59XA Other complications of anesthesia, initial encounter; K66.0 Peritoneal adhesions (postprocedural) (postinfection); K44.9 Diaphragmatic hernia without obstruction or gangrene; K29.50 Unspecified chronic gastritis without bleeding; K31.7 Polyp of stomach and duodenum
CPT/HCPCS: 49650; 43251; 36415; 80048; 82533; 83735; 84100; C1781; G0378; A9270; C9290; J0131; J0690; J1720; J1885; J2250; J2405; J2704; J3010

== ENCOUNTER → 2020-07-29 11:46 | Outpatient (CLI) | payer MEDICARE, SELFPAY ==
[2020-07-14 14:57] VITALS: BMI 23.9
[2020-07-29 13:06] LABS: Appearance Urine UA CLEAR; Bilirubin Urine UA NEGATIVE (NEGATIVE); Color Urine UA YELLOW; Glucose Urine UA NEGATIVE (Negative); Ketones Urine UA NEGATIVE (NEGATIVE); Leukocyte Esterase Urine UA NEGATIVE (NEGATIVE); Nitrite Urine UA NEGATIVE (Negative); Occult Blood Urine UA NEGATIVE (Negative); Protein Urine UA NEGATIVE (Negative); Specific Gravity Urine UA 1.025 (1.000-1.035); Urobilinogen Urine UA 0.2 E.U./dL (0.2)
[2020-07-29 13:07] LABS: pH Urine UA 6.5 (4.5-8.0)
== END ==
PROVIDERS: PCP Physician Assistant; Referring Provider Surgery; Visit Provider Surgery
DX: R30.0 Dysuria (principal)
CPT/HCPCS: 81003